=== PATIENT | female | born 1945 | race Caucasian/White ===

== ENCOUNTER 2017-04-09 16:38 | Emergency (ER) | payer MEDICARE, OTHER ==
[~2017-04-09 16:38] MED LIST: ACET325T51 PO; ASPI-973 PO; ATOR20TA PO; BUPR150T12 PO; BUSP10TA2 PO; GABA-502 PO; GLIM2TAB2 PO; HYDR12.5 PO; INSLIS SUBQ; INSU100V7 SUBQ; LEVO75TA4 PO; LISI-567 PO; PROP40TA5 PO
[2017-04-09 16:43] VITALS: BP 115/72; PULSE 76; RESP 20; O2SAT 97
--- NOTE | 2017-04-09 16:49 | ED.REPORT ---
HPI-Extremity Problem Lower Date of Service Apr 09, 2017 ED Provider: History of Present Illness: 71-year-old female here for left lower extremity pain and swelling. She had an episode of left foot pain 3 nights ago felt like somebody was flexing her toes for her in the middle the night, she describes it as a sharp pain. occured again last night where she had acute left foot pain and she points to her mid metatarsals as for the pain was. She has a history of swelling in her left lower extremity related to her hip pain and this is chronic for her as she states the swelling is not new. This foot pain Is gone. Now she also describes having an engorged vein in her foot that she is worried about although this vein was not necessarily painful. Her foot was in the dependent position. Swollen vein has since subsided. No history of blood clots or travel area and she is diabetic in reports elevated blood sugars and she is working with her doctor on that. Nursing Notes Stated Complaint: LT LOWER LEG/SENT BY URGENT CARE Chief Complaint: Extremity Trauma Nursing Notes Reviewed: Yes Allergies: Coded Allergies: latex (Verified Allergy, Intermediate, Rash,Itching,, 04/09/17) Scheduled Aspirin (Aspirin) 81 Mg Tablet 81 MG PO DAILY Atorvastatin (Lipitor) 20 Mg Tablet 20 MG PO DAILY Bupropion ER (Bupropion ER) 150 Mg Tablet.er 150 MG PO TID Buspirone (Buspirone) 10 Mg Tablet 10 MG PO BID Gabapentin (Gabapentin) 300 Mg Capsule 300 MG PO QID Glimepiride (Glimepiride) 2 Mg Tablet 2 MG PO DAILYAC Hydrochlorothiazide (Hydrochlorothiazide) 12.5 Mg Capsule 12.5 MG PO DAILY Insulin Glargine (Lantus U100 Insulin Vial) 100 Unit/Ml Unit 25 UNIT SUBQ BID Insulin Human Lispro (HumaLOG U100 Insulin Vial) 100 Unit/Ml Inj 0 UNIT SUBQ [facility] Levothyroxine (Levothyroxine) 75 Mcg Tablet 75 MCG PO DAILY Lisinopril (Lisinopril) 20 Mg Tablet 20 MG PO DAILY Propranolol HCl (Propranolol HCl) 40 Mg Tablet 40 MG PO BID Scheduled PRN Acetaminophen (Acetaminophen) 325 Mg Tablet 325 MG PO Q4H PRN PRN For Fever General Time Seen by MD: 16:48 Chief Complaint Foot injury left Hx Obtained From: Patient Arrived By: Walk-in Onset Occurred: 3 days ago Symptom Duration: Waxes and wanes Location: : Foot left Quality: Sharp Severity: Current: No pain currently Severity: Maximum: Moderate Pertinent Negative: Pt denies other symptoms Recent Healthcare: Recent doctor visit Similar Sx Previous: No Past Medical History Past Medical History Notes: diabetes, htn Past Medical History Reports: Diabetes mellitus, GERD, Hyperlipidemia, Hypertension Past Surgical History Cholecystecomy, rectocile, lumpectomy breasts Family History CAD, breast cancer, lung cancer, alzeimer's Smoking History Former Smoker Ambulatory Status Independent Review of Systems Review of Systems Note: LLE pain and swelling Basic Review of Systems Eyes: Vision NL, No discharge ENT: Hearing NL, No pain, No nasal congestion, No pharyngeal pain Respiratory: No shortness of breath, No cough, No wheeze Cardiovascular: No chest pain, No dyspnea on exertion, No orthopnea, No parox noct dyspnea, No palpitations Constitutional: Denies: Chills, Fatigue, Fever Neurologic: Denies: Change LOC Complete sys rev & neg: except as marked. Physical Exam Initial Vital Signs Vital Signs (First) Date Time Temp Pulse Resp B/P Pulse Ox O2 Delivery O2 Flow Rate FiO2 04/09/17 16:43 36.7 76 20 115/72 97 Room Air Initial VS: Reviewed General/Constitutional: Well-developed, Well-nourished Head / Eyes: Atraumatic, Normocephalic, PERRL ENT: Mucous membranes moist, Conjunctiva normal, No scleral icterus Respiratory: Breath sounds normal, Clear to auscultation, No respiratory distress Cardiovascular: Regular rate & rhythm, Heart sounds normal, Intact distal pulses Abdomen / GI: Soft, Non-tender, No guarding, No rebound, No distention Upper Extremities: Vascular intact, Neuro intact, No swelling, No tenderness Skin: Warm, Dry, No cyanosis Psychiatric: Mood/affect normal, Behavior normal, Normal thought content Lower Extremity / Pelvis / MS: Atraumatic, Inspection NL, No erythema, No deformity, Neurologic intact, Vascular intact, No edema Entire left lower extremity is tender to touch. It does appear more swollen than right side however patient states this is chronic for her. Pedal pulses present. No erythema noted. No calf tenderness. No engorged veins noted. Ankle / Foot: Atraumatic, Inspection NL, Full range of motion, No erythema, Non -tender, No deformity, Neurologic intact, Vascular intact Ankle and foot with 1+ nonpitting edema Interpretation & Diagnostics Interpretation & Diagnostics: te of Service: 04/09/17 3040 PROCEDURE: US VEINOUS LEG DUPLEX UNILATERAL, LEFT INDICATIONS: swelling pain TECHNIQUE: Real-time imaging, as well as color and pulse Doppler interrogation, were performed of the lower extremity deep veins from the inguinal ligament to the popliteal fossa. COMPARISON: None. FINDINGS: The deep veins are normally compressible, and free of intraluminal thrombus. Color and pulse Doppler demonstrate normal phasic intraluminal flow. There is normal augmentation response to distal compression maneuver. IMPRESSION: 1. No evidence of deep venous thrombosis in the left lower extremity. Re-Eval/Medical Decision Med Decision/Clinical Course US reported normal by tech Discharge & Departure Shift Change Sign-Out Imaging Studies: Imaging discussed Response to Therapy: Improved Impression: Primary Impression: Foot pain, left Additional Impression: Edema Edema type: unspecified Qualified Code: R60.9 - Edema, unspecified Disposition: Home Discharge Condition All VS Reviewed: Yes Condition: Stable Patient Instructions: Foot Sprain (ED) Additional Instructions: Follow-up with your PCP for further evaluation of the foot no evidence of clot was f found here today. Use her home pain meds as needed. Return if severe pain, severe swelling, erythema or any other severe changes in condition. Referrals: Karen Gunter (PCP) EDSupervising Provider for APC: Tushar Martinez Linnea K ARNP Apr 09, 2017 16:49
--- NOTE | 2017-04-09 18:29 | DRSVH ---
PROCEDURE: US VEINOUS LEG DUPLEX UNILATERAL, LEFT INDICATIONS: swelling pain TECHNIQUE: Real-time imaging, as well as color and pulse Doppler interrogation, were performed of the lower extr emity deep veins from the inguinal ligament to the popliteal fossa. COMPARISON: None. FINDINGS: The deep veins are normally compressible, and free of intraluminal thrombus. Color and pu lse Doppler demonstrate normal phasic intraluminal flow. There is normal augmentation response to di stal compression maneuver. IMPRESSION: 1. No evidence of deep venous thrombosis in the left lower extremity. Dictated by: Jeremias Ayala M.D. on 04/09/2017 at 18:28 Approved by: Jeremias Ayala M.D. on 04/09/2017 at 18:28
== END 2017-04-09 19:05 | disposition home or self-care (01) ==
LOC: SED 16:38
DX: M79.672 Pain in left foot (principal); R60.9 Edema, unspecified; E11.9 Type 2 diabetes mellitus without complications; I10 Essential (primary) hypertension; K21.9 Gastro-esophageal reflux disease without esophagitis; E78.5 Hyperlipidemia, unspecified; Z87.891 Personal history of nicotine dependence; Z90.49 Acquired absence of other specified parts of digestive tract; Z79.4 Long term (current) use of insulin; Z79.82 Long term (current) use of aspirin
CPT/HCPCS: 93970; 99284; G0463